=== PATIENT | male | born 1935 | race Caucasian/White ===

== ENCOUNTER 2018-11-10 10:41 | Emergency (ER) | payer MEDICARE, OTHER ==
--- NOTE | 2018-11-10 10:46 | ED Physician Documentation ---
PD HPI UPPER EXT INJURY - Stated complaint Stated Complaint: RT UPPER ARM PX - History obtained from History obtained from: Patient - History of Present Illness Location: Right, Shoulder Type of injury: Other (he was doing some golfing couple days ago and felt sore in shoulder later and next day. No particular injury. Has had pain increase with ROM into today. concerned about shoulder pain as referred from heart. But he has no chest pain nor dyspnea, No ENRIQUE) Where injury occurred: Other (golf course) Timing - onset: How many days ago (2) Timing - details: Gradual onset, Still present Worsened by: Moving (overhead, extension and internal rotation particularly), Palpating Associated symptoms: No: Weakness, Numbness, Swelling Similar symptoms before: Has not had sx before Review of Systems Constitutional: denies: Fever, Chills Throat: denies: Sore throat Cardiac: denies: Chest pain / pressure, Palpitations Respiratory: denies: Dyspnea, Cough GI: denies: Nausea, Vomiting Neurologic: denies: Generalized weakness, Focal weakness, Numbness PD PAST MEDICAL HISTORY - Past Medical History Cardiovascular: None Respiratory: None - Allergies Allergies/Adverse Reactions: Allergies Allergy/AdvReac Type Severity Reaction Status Date / Time No Known Drug Allergies Allergy Verified 11/10/18 10:59 PD ED PE NORMAL - Vitals Vital signs reviewed: Yes - General General: Alert and oriented X 3, No acute distress, Well developed/nourished - Cardiac Cardiac: RRR, No murmur - Respiratory Respiratory: Clear bilaterally - Abdomen Abdomen: Soft, Non tender - Derm Derm: Normal color, Warm and dry - Extremities Extremities: Other (right shoulder tender on anterior aspect, not at biceps head. No pain with elbow flexion. Hurts with some rotational movements but still strong. ) - Neuro Neuro: Alert and oriented X 3, No motor deficit, No sensory deficit Results - Vitals Vitals: Vital Signs - 24 hr 11/10/18 10:58 Temperature 36.4 C L Heart Rate 65 Respiratory 18 Rate Blood Pressure 183/110 H O2 Saturation 98 Oxygen O2 Source Room air - EKG (time done) 10:58 Rhythm: NSR [place]: Normal Intervals: Normal ND QRS: Normal Ischemia: Normal ST segments, T wave inversion. No: ST elevation c/w ischemia, ST depression Compare to prior EKG: Old EKG unavailable PD MEDICAL DECISION MAKING - ED course Complexity details: considered differential (he actually hurts with ROM and is tender, so seems musculoskeletal. ECG normal. ), d/w patient Departure - Departure Disposition: 01 Home, Self Care Clinical Impression: Right shoulder tendonitis Condition: Stable Record reviewed to determine appropriate education?: Yes Instructions: ED Tendinitis Rotator Cuff Follow-Up: Mario Santos MD [Primary Care Provider] - Comments: This sounds like some tendinitis of the rotator cuff. It should improve with light use of the shoulder and arm for several days to week combined with some anti-inflammatories such as ibuprofen or naproxen twice daily. Add Tylenol if needed for pains. Your EKG appears normal without any ischemic changes. This does not sound like heart related discomfort. Discharge Date/Time: 11/10/18 11:55
[2018-11-10 11:00] VITALS: BP 183/110
[2018-11-10] MEDS ORDERED: ACETAMINOPHEN 325 MG TABLET PO STA (11:17)
[2018-11-10] MEDS ORDERED: NAPROXEN 250 MG TABLET PO STA (11:17)
== END 2018-11-10 11:55 | disposition home or self-care (01) ==
LOC: ED 10:41
DX: M70.811 Other soft tissue disorders related to use, overuse and pressure, right shoulder (principal); Y93.53 Activity, golf
CPT/HCPCS: 93005; 99283; A9270

== ENCOUNTER 2020-12-12 18:54 | Outpatient (CLI) | payer MEDICARE | END 2020-12-12 18:55 | disposition short-term general hospital (02) | LOC: EMS 18:54 | DX: R55 Syncope and collapse (principal); R42 Dizziness and giddiness; R11.0 Nausea; R00.0 Tachycardia, unspecified | CPT/HCPCS: A0425; A0427 ==

== ENCOUNTER 2021-01-24 18:38 | Outpatient (CLI) | payer MEDICARE | END 2021-01-24 18:39 | disposition short-term general hospital (02) | LOC: EMS 18:38 | DX: I48.91 Unspecified atrial fibrillation (principal) | CPT/HCPCS: A0425; A0427 ==

== ENCOUNTER 2022-08-04 14:28 | Outpatient (CLI) | payer MEDICARE | END 2022-08-04 18:30 | disposition short-term general hospital (02) | LOC: EMS 14:28 | DX: R07.89 Other chest pain (principal); M25.512 Pain in left shoulder; M25.511 Pain in right shoulder; R53.1 Weakness | CPT/HCPCS: A0425; A0427 ==